=== PATIENT | female | born 1965 | race Caucasian/White ===

== ENCOUNTER 2018-04-26 13:22 | Outpatient (CLI) | payer BC | END 2018-04-26 13:23 | disposition home or self-care (01) | LOC: BICMAMMO 13:22 | PROVIDERS: ATTEND Obstetrics & Gynecology | DX: Z12.31 Encounter for screening mammogram for malignant neoplasm of breast (principal); N64.89 Other specified disorders of breast | CPT/HCPCS: 77063; 77067 ==

== ENCOUNTER 2019-04-30 08:27 | Day surgery (SDC) | payer BC ==
[2019-04-29 12:22] VITALS: BMI 21.2
[~2019-04-30 08:27] MED LIST: Cyclopentolate 1% Opth Drop 2 ML BOT L EYE SCH; EPINEPHrine 0.3 MG in Ophthalmic Irrigation Solution 500 ML IRR SCH; Fentanyl 100 MCG/2 ML VIAL ONE; Midazolam HCl 2 mg/2 ml Vial ONE; PROPOFOL 20 ML ONE; Phenylephrine 2.5% Ophth Soln 5 ML BOT L EYE SCH
[2019-04-30] MEDS ORDERED: Phenylephrine 2.5% Ophth Soln 5 ML BOT ONE (09:01)
[2019-04-30] MEDS ORDERED: Cyclopentolate 1% Opth Drop 2 ML BOT ONE (09:01)
[2019-04-30] MEDS ORDERED: Bupivacaine PF 0.75% SDV 10 ML ONE (10:13)
[2019-04-30] MEDS ORDERED: CEFAZOLIN 1 GM VIAL ONE (10:13)
[2019-04-30] MEDS ORDERED: Indocyanine Green 25 MG/10 ML VIAL ONE (10:13)
[2019-04-30] MEDS ORDERED: Lidocaine 4% PF 5 ML AMP ONE (10:13)
[2019-04-30] MEDS ORDERED: Maxitrol 0.1% Opth Oint 3.5 GM TUBE ONE (10:13)
[2019-04-30] MEDS ORDERED: Lidocaine 1% PF 5 ML VIAL ONE (10:13)
[2019-04-30] MEDS ORDERED: Triamcinolone 40 MG/ML VIAL ONE (10:13)
[2019-04-30] MEDS ORDERED: Midazolam HCl 2 mg/2 ml Vial ONE (11:33)
--- NOTE | 2019-04-30 16:04 | OP ---
DATE OF PROCEDURE: 04/30/2019 PREOPERATIVE DIAGNOSIS: Epiretinal membrane, left eye. POSTOPERATIVE DIAGNOSIS: Epiretinal membrane, left eye. PROCEDURE PERFORMED: 1. 25-gauge pars plana vitrectomy, left eye. 2. Epiretinal membrane/internal limiting membrane removal, left eye. ESTIMATED BLOOD LOSS: None. SPECIMENS REMOVED: None. COMPLICATIONS: None. ANESTHESIA: MAC with retrobulbar block. DESCRIPTION OF PROCEDURE: The patient was identified in the preoperative holding area. The correct eye being the left eye was marked for surgery. The patient was taken to the operating room, where MAC anesthesia was induced. A retrobulbar block was administered to the left eye. The block consisted of 1:1 ratio of 4% lidocaine and 0.75% Marcaine. A total of 5 mL was administered. The left eye was then prepped and draped in the usual sterile ophthalmic fashion for surgery. A wire lid speculum was placed. A standard 25-gauge pars plana vitrectomy platform was fashioned with trocars placed approximately 4 mm from the limbus. The infusion was noted to be within the vitreous cavity prior to being turned on to an infusion pressure of 30 mmHg. The light pipe Micro vitrector introduced in the eye under visualization of the BIOM viewing system. A careful core and peripheral shave vitrectomy were performed. Following vitrectomy, ICG dye was used to stain the internal limiting membrane. Using the Herminio ILM forceps, an epiretinal membrane/internal limiting membrane peel was performed in a circumferential fashion about the fovea. The peel extended approximately 2 disk diameters in radius circumferentially. Following peeling, the Micro vitrector was reintroduced in the eye under visualization of the BIOM viewing system. This was done to remove any residual vitreous debris. A 360-degree scleral depressed exam of periphery was performed, which revealed no defects. The cannulas were sequentially removed and all sclerotomies were noted to be watertight. Subconjunctival Kenalog and Ancef were injected. The wire lid speculum was removed followed by application of TobraDex ophthalmic ointment and a light patch and shield. The patient tolerated the procedure well and was taken to outpatient recovery in good condition. Job ID: [id number]
== END 2019-04-30 12:30 | disposition home or self-care (01) ==
LOC: SDC 08:27
PROVIDERS: ATTEND Ophthalmology Retina Specialist
PROC: 08NF3ZZ Release Left Retina, Percutaneous Approach (ICD-10-PCS; principal; 2019-04-30)
PROC: 08T53ZZ Resection of Left Vitreous, Percutaneous Approach (ICD-10-PCS; principal; 2019-04-30)
DX: H35.372 Puckering of macula, left eye (principal); Z79.899 Other long term (current) drug therapy; Z88.1 Allergy status to other antibiotic agents
CPT/HCPCS: J0171; J0690; J2001; J2250; J2704; J3010; J3301; J3490

== ENCOUNTER 2019-08-28 10:22 | Outpatient (CLI) | payer BC ==
--- NOTE | 2019-08-28 11:16 | MMO ---
Bilateral MAMMO Bilat Screen [facility]. CLINICAL HISTORY: Patient is 53 years old and is seen for screening. The patient has no family history of breast cancer. The patient has no personal history of cancer. VIEWS: The views performed were: bilateral craniocaudal with tomosynthesis and bilateral mediolateral oblique with tomosynthesis. FILMS COMPARED: The present examination has been compared to prior imaging studies performed at [facility] on 12/04/2014, 12/08/2015, 02/21/2017 and 04/26/2018. This study has been interpreted with the assistance of computer-aided detection. MAMMOGRAM FINDINGS: The breasts are heterogeneously dense, which could obscure a lesion on mammography. There are no suspicious masses, suspicious calcifications, or new areas of architectural distortion. IMPRESSION: THERE IS NO MAMMOGRAPHIC EVIDENCE OF MALIGNANCY. A ROUTINE FOLLOW-UP MAMMOGRAM IN 1 YEAR IS RECOMMENDED. THE RESULTS OF THIS EXAM WERE SENT TO THE PATIENT. ACR BI-RADS Category 1 - Negative MAMMOGRAPHY NOTE: 1. A negative mammogram report should not delay a biopsy if a dominant of clinically suspicious mass is present. 2. Approximately 10% to 15% of breast cancers are not detected by mammography. 3. Adenosis and dense breasts may obscure an underlying neoplasm. Reported by: KATIE WILSON MD Electonically Signed: [id number]
--- NOTE | 2019-08-28 13:27 | BD ---
Exam: DEXA Bone Density 08/28/19 HISTORY: 53-year-old postmenopausal female for screening. Lumbar Spine: BMD (g/cm2) T-SCORE L1 0.928 -0.6 L2 0.946 -0.7 L3 0.922 -1.5 L4 0.960 -0.9 L1-L4 0.940 -1.0 Left Femoral Neck: 0.732 -1.1 Total Proximal Femur: 0.959 0.1 Impression: Osteopenia. This patient has a ten year WHO fracture risk of a major osteoporotic fracture of 5.4% an d hip fracture of 0.3%. POS: EAA
== END 2019-08-28 10:23 | disposition home or self-care (01) ==
LOC: BICMAMMO 10:22
PROVIDERS: ATTEND Family Medicine
DX: Z12.31 Encounter for screening mammogram for malignant neoplasm of breast (principal); Z13.820 Encounter for screening for osteoporosis; N95.9 Unspecified menopausal and perimenopausal disorder; M85.89 Other specified disorders of bone density and structure, multiple sites
CPT/HCPCS: 36415; 77063; 77067; 77080; 80053; 80061; 82306; 84439; 84443; 84481; 85025

== ENCOUNTER 2020-11-04 11:22 | Outpatient (CLI) | payer OTHER | END 2020-11-04 11:23 | disposition home or self-care (01) | LOC: BICMAMMO 11:22 | PROVIDERS: ATTEND Family Medicine | DX: Z12.31 Encounter for screening mammogram for malignant neoplasm of breast (principal) | CPT/HCPCS: 77063; 77067 ==

== ENCOUNTER 2020-11-19 14:13 | Outpatient (CLI) | payer OTHER | END 2020-11-19 14:14 | disposition home or self-care (01) | LOC: ULT 14:13 | DX: Z03.89 Encounter for observation for other suspected diseases and conditions ruled out (principal); E07.89 Other specified disorders of thyroid | CPT/HCPCS: 76536 ==

== ENCOUNTER 2022-02-01 13:41 | Outpatient (CLI) | payer OTHER | END 2022-02-01 13:42 | disposition home or self-care (01) | LOC: BICMAMMO 13:41 | PROVIDERS: ATTEND Family Medicine | DX: Z12.31 Encounter for screening mammogram for malignant neoplasm of breast (principal) | CPT/HCPCS: 77063; 77067 ==

== ENCOUNTER 2023-02-28 09:54 | Outpatient (CLI) | payer OTHER | END 2023-02-28 09:55 | disposition home or self-care (01) | LOC: BICMAMMO 09:54 | PROVIDERS: ATTEND Obstetrics & Gynecology | DX: Z12.31 Encounter for screening mammogram for malignant neoplasm of breast (principal) | CPT/HCPCS: 77063; 77067 ==